=== PATIENT | male | born 1970 | race Caucasian/White ===

== ENCOUNTER 2023-03-07 21:02 | Emergency (ER) | payer MEDICAID, SELFPAY ==
[2023-03-07 21:03] VITALS: BP 142/95; PULSE 68; RESP 15; TEMP 36.4; O2SAT 97; BMI 30.4
[2023-03-07] MEDS: Diphth,Pertuss(Acell),Tet Vac 0.5 ML Vial IM (22:24)
[2023-03-07] MEDS: Lidocaine/Epi/Tetracaine 50 ML 1 APPLIC TOPICAL (22:24)
--- NOTE | 2023-03-07 22:36 | EDS_ITS ---
HPI History of Present Illness Chief Complaint: Laceration Informant: patient Narrative Narrative: Patient states he was putting a log splitter away, he dropped it on the ground, it actually hit a bolt that popped up and hit him in the face sustaining a laceration. He denies any pain or vision trouble. Tetanus Immunization: >10 years [facility] Medical History no medical history no medical history Social History Smoking Status: Never smoker ROS ROS ED Eyes Eyes: Denies blurry vision or change in vision ENT ENT ED: Denies ear pain, rhinorrhea or sore throat Musculoskeletal Musculoskeletal: Denies back pain or neck pain Integumentary Reports laceration Neurologic Neurologic: Denies headache(s), paresthesias or weakness EXAM Physical Exam Const Vital Signs: 03/07/23 21:03 Temperature 97.5 F L Temperature Source Temporal Pulse Rate 68 Respiratory Rate 15 Blood Pressure 142/95 H Blood Pressure Mean 110 Pulse Ox 97 Oxygen Delivery Method Room Air Positive well nourished and well developed General Appearance ED: well developed and NAD HEENT HEENT Narrative: Minor trauma/injury to the face between the right upper eyelid and the eyebrow with a superficial laceration, no bony tenderness. No other injuries. trauma Eyes PERRL and EOMs intact bilaterally General Eye ED: Yes other Other Details: No globe trauma Neuro oriented x3, CN's II-XII intact bilaterally, moves all extremities, no focal motor deficits, no sensory deficits noted and gait normal Independence Coma Scale: document GCS findings Spontaneous Obeys Commands Oriented 15 Psych mental status grossly normal and thought process normal Skin Skin Narrative: 1 cm partial-thickness clean appearing linear laceration swelling between the right upper eyelid and the eyebrow to the face. PROC Procedures Lacerations Face: Length: 1 cm Depth: Skin Shape: Linear Prep: Sterile Conditions and Chlorhexadine Laceration repair: Dermabond and Lidocaine with epi (Topically, LET) MDM MDM MDM Narrative Medical decision making narrative: This is a great laceration to Dermabond. No suturing required. Discussed pros and cons of all of this with the patient is comfortable with Dermabond in it which was done see the procedure note. His tetanus was updated. Given appropriate discharge instructions for wound care and reasons to return. Discharge Plan Triage Chief Complaint: Laceration ED Provider: Sen Frey Dx/Rx/DC Orders Clinical Impression: [id number] (DTP) vaccination, Laceration of face Instructions: Tdap Vaccine, ED Laceration, Face: Skin Glue Primary Care Provider: Marycruz Yusuf Referrals: Marycruz Yusuf MD [Primary Care Provider] - As Needed Disposition Disposition: Home, Self Care
== END 2023-03-07 23:01 | disposition home or self-care (01) ==
PROVIDERS: Emergency Provider Emergency Medicine; PCP Internal Medicine; Visit Provider Emergency Medicine
DX: S01.81XA Laceration without foreign body of other part of head, initial encounter (principal); X58.XXXA Exposure to other specified factors, initial encounter; Z23 Encounter for immunization
CPT/HCPCS: 12011; 90715; 99282